=== PATIENT | male | born 1940 | race Caucasian/White ===

== ENCOUNTER 2017-01-25 07:19 | Emergency (ER) | payer BC ==
[~2017-01-25] VITALS: Ht 193 cm; Wt 88.5 kg
[~2017-01-25 07:19] MED LIST: ACC10 PO; ALBUAER2 INH; ASPCH81X PO; ATEN25TA PO; AVD5 PO; BNC40 PO; FLNIN/ NAE; FLUO20CA35 PO; IBUP-103 PO; IPRA0.037 NAE; LORA10TA51 PO; ONDA4TAB7 SL
[2017-01-25 07:23] VITALS: TEMP 36.8; Ht 193 cm; Wt 88.5 kg
--- NOTE | 2017-01-25 07:40 | EMERGENCY ROOM VISIT NOTE ---
History Report prepared by Terry: Juan Vazquez Under the Supervision of: Dr. Argelia Palacio M.D. First contact with patient: 07:32 Chief Complaint: BITE Stated Complaint: DOG BITES History of Present Illness The patient is a 76 year old male who presents to the Emergency Room with two acute dog bites that occurred last night. The patient's two dogs were fighting and the patient attempted to stop them leading up to the bites. He was bit on the bilateral thumbs. The associated pain is rated 2/10 in severity. The dogs' shots are up to date. The patient is unsure of his tetanus status. The patient is borderline diabetic but does not take anything for it. The patient does not have any known antibiotics allergies. Source of History: patient Onset: last night Position: finger(s) (bilateral thumbs) Symptom Intensity: 2/10 Quality: other (dog bites) Timing: other (acute) Review of Systems See HPI for pertinent positives & negatives. A total of 6 systems reviewed and were otherwise negative. 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 (6) Neurofibroma (7) Tonsillectomy Family History Cancer Diabetes mellitus Heart disease Hypertension Lung disease Social History Smoking Status: Never Smoker Alcohol Use: none Marital Status: Housing Status: lives with family Occupation Status: retired Current/Historical Medications Scheduled Amlodipine Besylate (Amlodipine Besylate), 1 TAB PO DAILY Amoxicillin & Pot Clavulanate (Augmentin 875-125 mg), 875 MG PO BID Aspirin (Aspirin Ec), 81 MG PO DAILY Atenolol (Atenolol), 1 TAB PO BID Dutasteride (Dutasteride), 1 TAB PO DAILY Fluoxetine HCl (Fluoxetine HCl), 1 TAB PO BID Olmesartan Medoxomil (Olmesartan Medoxomil), 1 TAB PO DAILY Quinapril Hcl (Accupril), 1 TAB PO BID Allergies Coded Allergies: Heparin (Unverified Allergy, Unknown, "PLATELETS GET KILLED", 01/25/17) Physical Exam Vital Signs Date Time Temp Pulse Resp B/P (MAP) Pulse Ox O2 Delivery O2 Flow Rate FiO2 01/25/17 09:44 73 16 147/77 97 01/25/17 08:23 67 16 160/79 96 Room Air 01/25/17 07:23 36.8 69 18 154/77 94 Room Air Physical Exam Vital signs reviewed. General: Well-appearing elderly male, in no significant distress. Musculoskeletal: Thumbs as described below, otherwise atraumatic, no peripheral edema. Neurologic: Patient awake alert and oriented x 3 Skin: Several superficial lacerations to the right thumb totaling about 1.5 cm on the dorsal aspect, small subcentimeter laceration to the palmar aspect, no lymphangitic streaking or cellulitis. Small ecchymotic area to the palmar surface of the left thumb, abrasion to the dorsal aspect. Medical Decision & Procedures ER Provider Diagnostic Interpretation: X-ray results as stated below per interpretation by me and the radiologist: RIGHT FINGER(S) MIN 2 VIEWS ROUTINE CLINICAL HISTORY: Right thumb dog bite. COMPARISON: None FINDINGS: Alignment of the right thumb is anatomic. There is no fracture or radiopaque foreign body. Mild arthritis is noted within articulations of the right thumb. IMPRESSION: No acute fracture or dislocation of the right thumb Electronically signed by: Casey Paul M.D. 01/25/2017 8:15 AM Dictated Date/Time: 01/25/2017 8:14 AM Medications Administered Medications (Trade) Dose Ordered Sig/Paloma Route Start Time Stop Time Status Last Admin Dose Admin Lidocaine HCl (Buffered Lidocaine 1% Inj) 20 ml NOW ONCE INFIL 01/25/17 07:45 01/25/17 07:47 DC 01/25/17 08:23 20 ML Amoxicillin/ Clavulanate Potassium (Augmentin Tab) 875 mg ONE ONCE PO 01/25/17 08:00 01/25/17 08:01 DC 01/25/17 08:21 875 MG Gelatin (Surgifoam Sponge 12-7MM (SMALL)) 1 ea NOW ONCE EXT 01/25/17 09:15 01/25/17 09:16 DC 01/25/17 09:19 1 EA ED Course 07: Past medical records reviewed. The patient was evaluated in room A11b. A complete history and physical examination was performed. His last tetanus shot was in April 2011. 0745: Lidocaine HCl 20 ml INFIL ordered. 0800: Augmentin 875 mg PO.. 15: Gelatin 1 ea EXT. 929: Reassessed the patient. Discussed the discharge instructions with him. He verbalized understanding and agreement. The patient is ready for discharge Medical Decision Blood Pressure Screening: Patient was found to have a mildly elevated blood pressure and was told to continue using his medications as prescribed. Medication Reconciliation: I attest that I have personally reviewed the patient' s current medication list. This pt was evaluated and appeared to be in no distress. XR was obtained and negative for dwayne involvement. Wounds were cleansed and approximated by Nikia Ramirez PA-C. Sterile dressing and thumb splint to right was applied. Pt TD was UTD. He was placed on Augmentin x 7 days. Wound care instructions were given. Pt was d/c to f/u with PCP, he will return to the ED for worsening of symptoms or any medical concerns. Impression Primary Impression: Dog bite Scribe Attestation The scribe's documentation has been prepared under my direction and personally reviewed by me in its entirety. I confirm that the note above accurately reflects all work, treatment, procedures, and medical decision making performed by me. Departure Information Dispostion Home / Self-Care Prescriptions Amoxicillin & Pot Clavulanate (Augmentin 875-125 mg) 1 Tab Tab 875 MG PO BID for 7 Days, TAB Prov: Argelia Palacio M.D. 01/25/17 Referrals No Doctor, Assigned (PCP) Forms HOME CARE DOCUMENTATION FORM, IMPORTANT VISIT INFORMATION Patient Instructions My [facility] Additional Instructions Diagnosis: Dog bite Augmentin 875 mg twice daily for 7 days. Your tetanus status is up-to-date as of 2010. Wash the wound gently with warm water and gentle soap once daily. Apply antibiotic ointment. Use the finger splint for several days to avoid reopening the wound. Follow-up with your physician within the next 2-3 days for reevaluation. Watch for signs of infection including redness, swelling and increased pain. Seek medical attention if any of the above symptoms present. Return to the ER for worsening of symptoms or any medical concerns. Problem Qualifiers Primary Impression: Dog bite Encounter type: initial encounter Qualified Codes: W54.0XXA - Bitten by dog , initial encounter
[2017-01-25] MEDS ORDERED: XYLOCAINE 1%/SOD BICARB 20 ML VIAL INFIL ONE (07:45)
[2017-01-25] MEDS ORDERED: NRV/10 PO (07:54)
[2017-01-25] MEDS ORDERED: TNR25 PO (07:54)
[2017-01-25] MEDS ORDERED: OLME40TA33 PO (07:54)
[2017-01-25] MEDS ORDERED: FLUO20CA36 PO (07:54)
[2017-01-25] MEDS ORDERED: DUTA1CAP3 PO (07:54)
[2017-01-25] MEDS ORDERED: ASPI81TA28 PO (07:54)
[2017-01-25] MEDS ORDERED: QUIN40TA18 PO (07:54)
[2017-01-25] MEDS ORDERED: AMOXICILLIN/CLAVULANATE TAB 875 MG TAB PO ONE (08:00)
--- NOTE | 2017-01-25 08:16 | DIAGNOSTIC IMAGING REPORT ---
RIGHT FINGER(S) MIN 2 VIEWS ROUTINE CLINICAL HISTORY: Right thumb dog bite. COMPARISON: None FINDINGS: Alignment of the right thumb is anatomic. There is no fracture or radiopaque foreign body. Mild arthritis is noted within articulations of the right thumb. IMPRESSION: No acute fracture or dislocation of the right thumb Electronically signed by: Casey Paul M.D. 01/25/2017 8:15 AM Dictated Date/Time: 01/25/2017 8:14 AM
--- NOTE | 2017-01-25 08:56 | EMERGENCY ROOM VISIT NOTE ---
ED Visit Note EMERGENCY DEPARTMENT PROCEDURE NOTE: I was asked by Dr. Palacio to evaluate and repair the right thumb wounds of this 76-year-old white male patient. Please refer to their dictation for the complete history, physical exam, and ED course. EMERGENCY DEPARTMENT COURSE: The wound was cleansed with saline, prepped with Betadine and draped with sterile towels. The wounds were anesthetized with 1% plain buffered lidocaine. The 1 cm laceration on the medial aspect of the right thumb was irrigated copiously using normal saline solution and direct pressure irrigation. Wound was examined thoroughly. There was no evidence for foreign body. The wound was repaired using 1, 5-0 nylon sutures. Patient also had a 0.5 cm superficial flap-like laceration on the dorsal aspect of the finger over the IP crease. This skin flap was excised. Bacitracin and a light dressing were applied. Patient tolerated the procedure well.
[2017-01-25] MEDS ORDERED: GELATIN SPONGE 12-7MM EXT ONE (09:15)
[2017-01-25] MEDS ORDERED: AMOX875T PO (09:32)
[2017-01-25 09:44] VITALS: BP 147/77; PULSE 73; O2SAT 97
== END 2017-01-25 09:40 | disposition home or self-care (01) ==
LOC: C.EDB 07:20 → C.EDA 09:40
DX: S61.051A Open bite of right thumb without damage to nail, initial encounter (principal); W54.0XXA Bitten by dog, initial encounter; Y92.019 Unspecified place in single-family (private) house as the place of occurrence of the external cause; I10 Essential (primary) hypertension; E11.9 Type 2 diabetes mellitus without complications; N40.0 Benign prostatic hyperplasia without lower urinary tract symptoms; Z80.9 Family history of malignant neoplasm, unspecified; Z83.3 Family history of diabetes mellitus; Z82.49 Family history of ischemic heart disease and other diseases of the circulatory system; Z83.6 Family history of other diseases of the respiratory system; Z79.82 Long term (current) use of aspirin; Z79.899 Other long term (current) drug therapy

== ENCOUNTER → 2017-03-08 | Outpatient (CLI) | payer BC ==
[~2017-03-08] MED LIST changes: -ACC10 PO; -ALBUAER2 INH; +AMOX875T PO; -ASPCH81X PO; +ASPI81TA28 PO; -ATEN25TA PO; -AVD5 PO; -BNC40 PO; +DUTA1CAP3 PO; -FLNIN/ NAE; -FLUO20CA35 PO; +FLUO20CA36 PO; -IBUP-103 PO; -IPRA0.037 NAE; -LORA10TA51 PO; +NRV/10 PO; +OLME40TA33 PO; -ONDA4TAB7 SL; +QUIN40TA18 PO; +TNR25 PO
[2017-03-08 11:11] LABS: BASO % 0.7 %; BASO ABS # 0.04 K/uL (0-0.2); COMPLETE YES; EOS % 2.7 %; HEMATOCRIT 47.1 % (42-52); IG% 0.3 %; LYMPH % 19.8 %; LYMPH ABS # 1.18 K/uL (1.2-3.4); MEAN CELL VOLUME 98.5 fL (80-100); MEAN CORPUSCULAR HEMOGLOBIN 32.6 pg (25-34); MEAN CORPUSCULAR HGB CONC 33.1 g/dl (32-36); MEAN PLATELET VOLUME 11.2 fL (7.4-10.4); MONO % 10.4 %; NEUT % 66.1 %; PLATELET COUNT 164 K/uL (130-400); RED BLOOD COUNT 4.78 M/uL (4.7-6.1); WHITE BLOOD COUNT 5.97 K/uL (4.8-10.8)
[2017-03-08 11:37] LABS: BLOOD UREA NITROGEN 16 mg/dl (7-18); BUN/CREATININE RATIO 20.8 (10-20); CALCIUM 9.3 mg/dl (8.5-10.1); CARBON DIOXIDE 31 mmol/L (21-32); CHLORIDE 104 mmol/L (98-107); CREATININE 0.77 mg/dl (0.60-1.40); GLUCOSE 118 mg/dl (70-99); POTASSIUM 4.2 mmol/L (3.5-5.1); SODIUM 142 mmol/L (136-145)
[2017-03-08 11:41] LABS: CHOLESTEROL 162 mg/dl (0-200); CHOLESTEROL/HDL RATIO 2.6; HDL CHOLESTEROL 62 mg/dl; LDL CHOLESTEROL CALCULATED 81 mg/dl; TRIGLYCERIDES 97 mg/dl (0-150); VERY LOW DENSITY LIPOPROT CALC 19 mg/dl
[2017-03-08 12:35] LABS: ESTIMATED AVERAGE GLUCOSE 117 mg/dl; HA1C FLAG Normal (Normal)
== END | disposition home or self-care (01) ==
LOC: C.LABBC 07:37
PROVIDERS: ATTEND Nurse Practitioner Adult Health
DX: Z00.00 Encounter for general adult medical examination without abnormal findings (principal); I10 Essential (primary) hypertension; R73.01 Impaired fasting glucose

== ENCOUNTER 2017-04-30 00:03 | Emergency (ER) | payer BC ==
[~2017-04-30] VITALS: Ht 193 cm; Wt 89.5 kg
[~2017-04-30 00:03] MED LIST changes: -AMOX875T PO
[2017-04-30 00:08] VITALS: TEMP 36.4; Ht 193 cm; Wt 89.5 kg
[2017-04-30] MEDS ORDERED: AMOXICILLIN/CLAVULANATE TAB 875 MG TAB PO ONE (00:45)
[2017-04-30] MEDS ORDERED: AMOX875T PO (00:46)
[2017-04-30 00:58] VITALS: BP 161/81; PULSE 72; O2SAT 100
--- NOTE | 2017-04-30 01:03 | EMERGENCY ROOM VISIT NOTE ---
History Report prepared by Terry: Nawaf Villa Under the Supervision of: Dr. Lian Ku D.O. First contact with patient: 00:12 Chief Complaint: BITE Stated Complaint: DOG BITE RIGHT ARM History of Present Illness The patient is a 77 year old male who presents to the Emergency Room for evaluation s/p dog bite occurring shortly prior to arrival. He states that he was bit on his right forearm. He states that his dog bit him after he startled him. The patient notes that his dog is relatively small. He has been bit by this dog in the past without significant complications. He believes his tetanus is up to date. The patient did not sustain any other injuries. Source of History: patient Onset: Shortly prior to arrival Position: arm (right forearm) Quality: other (dog bite) Timing: other (episode) Review of Systems See HPI for pertinent positives & negatives. A total of 6 systems reviewed and were otherwise negative. 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 (6) Neurofibroma (7) Tonsillectomy Family History Cancer Diabetes mellitus Heart disease Hypertension Lung disease Social History Smoking Status: Former Smoker Alcohol Use: none Housing Status: lives with family Occupation Status: retired Current/Historical Medications Scheduled Amlodipine Besylate (Amlodipine Besylate), 1 TAB PO DAILY Amoxicillin & Pot Clavulanate (Augmentin 875-125 mg), 875 MG PO BID Aspirin (Aspirin Ec), 81 MG PO DAILY Atenolol (Atenolol), 1 TAB PO BID Dutasteride (Dutasteride), 1 TAB PO DAILY Fluoxetine HCl (Fluoxetine HCl), 1 TAB PO BID Olmesartan Medoxomil (Olmesartan Medoxomil), 1 TAB PO DAILY Quinapril Hcl (Accupril), 1 TAB PO BID Allergies Coded Allergies: Heparin (Unverified Allergy, Unknown, "PLATELETS GET KILLED", 04/30/17) Physical Exam Vital Signs Date Time Temp Pulse Resp B/P (MAP) Pulse Ox O2 Delivery O2 Flow Rate FiO2 04/30/17 00:58 72 18 161/81 100 04/30/17 00:08 36.4 72 18 161/81 100 Room Air Physical Exam HEENT: Head - normocephalic and atraumatic Pupils are equal, round, and reactive to light. Extraocular eye muscles are intact, and sclera are anicteric. Nose - moist nasal mucosa without discharge. Mouth - moist buccal mucosa. Oropharynx is nonerythematous and there is no tonsillar exudate or edema noted. Neck: Supple; no JVD, nuchal rigidity, cervical lymphadenopathy. Heart: Regular rate and rhythm. There is a normal S1 and S2 with no murmurs, clicks, or gallops appreciated. Lungs: Clear to auscultation bilaterally with no wheezes, rales, or rhonchi. Abdomen: Soft, completely nontender, nondistended, with good bowel sounds. There are no palpable pulsatile masses or hepatosplenomegaly. There is no guarding, rigidity, or rebound noted. Right Upper Extremity: 2 cm laceration to the thenar eminence of the right hand. Two small, superficial puncture wounds to the dorsal right forearm. Small , superficial puncture wound to the dorsal wrist. Skin: warm and dry with good turgor and no rashes. Medical Decision & Procedures Medications Administered Medications (Trade) Dose Ordered Sig/Paloma Route Start Time Stop Time Status Last Admin Dose Admin Amoxicillin/ Clavulanate Potassium (Augmentin Tab) 875 mg ONE ONCE PO 04/30/17 00:45 04/30/17 00:46 DC 04/30/17 00:49 875 MG Procedure Location: thenar eminence of the right hand Total length: 2 cm Complexity: simple Verbal consent was obtained. At this time, the risks of the procedure are less than the risks of NOT performing the procedure. A time out was taken and the correct patient and site identified. The skin was prepped with betadine. Copious irrigation was performed using sterile water. The skin was re-prepped with betadine and a sterile field set. The wound was explored for foreign bodies and none found. Examination revealed no injury to deep structures such as tendons, bone, or significant blood vessels. Debridement was not performed. The wound edges were approximated using 1, 4-0 simple Ethilon suture. Hemostasis and excellent approximation was achieved. Antibacterial ointment and a sterile dressing applied. Detailed wound care instructions and signs and symptoms of infection reviewed with the the patient. No complications and the patient tolerated the procedure well. ED Course 0019: Past medical records reviewed. The patient was evaluated in room A3. A complete history and physical exam was performed. The the patient states that he is up-to-date on his tetanus and that the dogs are up-to-date on their rabies vaccine. 0025: I conducted the laceration repair. See the procedure note for details. I also performed a thorough washout to the wounds on the forearm and wrist. 0045: Ordered Augmentin Tab 875 mg PO. Upon reevaluation, the patient is resting comfortably. He verbalized agreement of the treatment plan. The patient was discharged home. Medical Decision This is a 77-year-old male patient who suffered dog bites to his right upper extremity. One of the wounds on the right hand required suture repair. Only one suture was placed to loosely approximate the wound edges. The patient was placed on antibiotics. The rest of the wounds were cleansed and dressed. He was instructed to watch for signs of infection. He is up to date on tetanus. Impression Primary Impression: Dog bite of right arm Scribe Attestation The scribe's documentation has been prepared under my direction and personally reviewed by me in its entirety. I confirm that the note above accurately reflects all work, treatment, procedures, and medical decision making performed by me. Departure Information Dispostion Home / Self-Care Prescriptions Amoxicillin & Pot Clavulanate (Augmentin 875-125 mg) 1 Tab Tab 875 MG PO BID, #14 TAB Prov: Lian Ku D.O. 04/30/17 Referrals No Doctor, Assigned (PCP) Forms HOME CARE DOCUMENTATION FORM, IMPORTANT VISIT INFORMATION Patient Instructions ED Bite Dog, My [facility]ravel Additional Instructions Rest with your right arm elevated. Watch the wounds for signs of infection. Keep the wounds clean with soap and water. Cover with antibiotic ointment and a sterile dressing. Augmentin - 1 tab. every 12 hours Use tylenol and motrin for pain Problem Qualifiers Primary Impression: Dog bite of right arm Encounter type: initial encounter Qualified Codes: S41.151A - Open bite of right upper arm, initial encounter; W54.0XXA - Bitten by dog, initial encounter
== END 2017-04-30 00:52 | disposition home or self-care (01) ==
LOC: C.EDB 00:05 → C.EDA 00:52
DX: S51.851A Open bite of right forearm, initial encounter (principal); W54.0XXA Bitten by dog, initial encounter; I10 Essential (primary) hypertension; E11.9 Type 2 diabetes mellitus without complications; Z90.49 Acquired absence of other specified parts of digestive tract; N40.0 Benign prostatic hyperplasia without lower urinary tract symptoms; Z80.9 Family history of malignant neoplasm, unspecified; Z83.3 Family history of diabetes mellitus; Z82.49 Family history of ischemic heart disease and other diseases of the circulatory system; Z87.891 Personal history of nicotine dependence; Z79.82 Long term (current) use of aspirin; Z79.899 Other long term (current) drug therapy

== ENCOUNTER → 2017-05-08 | Outpatient (CLI) | payer BC ==
[~2017-05-08] MED LIST changes: +AMOX875T PO
[2017-05-08 13:21] LABS: URINE APPEARANCE CLEAR (CLEAR); URINE BILIRUBIN NEG (NEG); URINE COLOR YELLOW; URINE NITRITE NEG (NEG); URINE SPECIFIC GRAVITY 1.014 (1.000-1.030); UROBILINOGEN NEG (NEG)
[2017-05-08 13:27] LABS: MANUAL MICROSCOPIC REQUIRED? NO; REVIEW REQ? NO
[2017-05-08 13:44] LABS: URINE TOTAL PROTEIN < 5.0 mg/dl (0-11.9)
[2017-05-08 13:50] LABS: BLOOD UREA NITROGEN 17 mg/dl (7-18); CREATININE 0.72 mg/dl (0.60-1.40); GLUCOSE 99 mg/dl (70-99)
[2017-05-08 13:51] LABS: CALCIUM 9.3 mg/dl (8.5-10.1); CARBON DIOXIDE 29 mmol/L (21-32); CHLORIDE 102 mmol/L (98-107); PHOSPHORUS 2.8 mg/dl (2.5-4.9); POTASSIUM 3.8 mmol/L (3.5-5.1); SODIUM 137 mmol/L (136-145)
== END | disposition home or self-care (01) ==
LOC: C.LAB1850 12:12
PROVIDERS: ATTEND Internal Medicine Nephrology
DX: I10 Essential (primary) hypertension (principal)

== ENCOUNTER → 2017-05-18 | Outpatient (CLI) | payer BC ==
[~2017-05-18] MED LIST changes: -AMOX875T PO
--- NOTE | 2017-05-18 11:02 | DIAGNOSTIC IMAGING REPORT ---
DOPPLER ULTRASOUND OF THE RENAL ARTERIES CLINICAL HISTORY: Poorly controlled hypertension. COMPARISON STUDY: Abdominal CT dated 09/11/2006. TECHNIQUE: Doppler sonography of the renal arteries was performed to assess renal artery stenosis. Images are reviewed in the transverse and longitudinal planes. FINDINGS: The kidneys history cortical atrophy and are without hydronephrosis. Right kidney measures 12.3 cm in length and the left kidney measures 12.0 cm in length. On the right, intrarenal arterial resistive indices measured 0.67. Intrarenal arterial waveforms are normal with brisk upstrokes. The right renal arterial waveform is normal, and velocities within the right renal artery measure up to 138 cm/sec. The right renal vein is patent. On the left, intrarenal arterial resistive indices measured 0.69. Intrarenal arterial waveforms are normal with brisk upstrokes. The left renal arterial waveform is normal, and velocities within the left renal artery measure up to 102 cm/sec. The left renal vein is patent. The abdominal aorta is patent. Velocities within the abdominal aorta measure up to 109 cm/s. IMPRESSION: 1. There is no sonographic evidence of renal artery stenosis. 2. The kidneys insert cortical atrophy and are without hydronephrosis. Electronically signed by: Arjun Amato M.D. 05/18/2017 11:01 AM Dictated Date/Time: 05/18/2017 10:59 AM
== END | disposition home or self-care (01) ==
LOC: C.ULTR 09:27
PROVIDERS: ATTEND Internal Medicine Nephrology
DX: I10 Essential (primary) hypertension (principal); N26.1 Atrophy of kidney (terminal)

== ENCOUNTER → 2017-05-22 | Outpatient (CLI) | payer BC ==
[2017-05-22 13:31] LABS: BLOOD UREA NITROGEN 30 mg/dl (7-18); BUN/CREATININE RATIO 30.9 (10-20); CALCIUM 9.6 mg/dl (8.5-10.1); CARBON DIOXIDE 31 mmol/L (21-32); CHLORIDE 98 mmol/L (98-107); CREATININE 0.97 mg/dl (0.60-1.40); GLUCOSE 132 mg/dl (70-99); MAGNESIUM 2.6 mg/dl (1.8-2.4); POTASSIUM 3.9 mmol/L (3.5-5.1); SODIUM 137 mmol/L (136-145)
[2017-05-22 13:32] LABS: PHOSPHORUS 2.9 mg/dl (2.5-4.9)
== END | disposition home or self-care (01) ==
LOC: C.LAB1850 11:14
PROVIDERS: ATTEND Internal Medicine Nephrology
DX: I10 Essential (primary) hypertension (principal)

== ENCOUNTER → 2017-06-01 | Outpatient (CLI) | payer BC ==
[2017-06-01 11:13] LABS: BLOOD UREA NITROGEN 19 mg/dl (7-18); BUN/CREATININE RATIO 19.4 (10-20); CALCIUM 9.1 mg/dl (8.5-10.1); CARBON DIOXIDE 32 mmol/L (21-32); CHLORIDE 101 mmol/L (98-107); GLUCOSE 127 mg/dl (70-99); POTASSIUM 3.9 mmol/L (3.5-5.1); SODIUM 139 mmol/L (136-145)
[2017-06-01 11:26] LABS: MAGNESIUM 2.4 mg/dl (1.8-2.4); PHOSPHORUS 2.7 mg/dl (2.5-4.9)
== END | disposition home or self-care (01) ==
LOC: C.LABBC 07:54
PROVIDERS: ATTEND Internal Medicine Nephrology
DX: R53.83 Other fatigue (principal); N40.0 Benign prostatic hyperplasia without lower urinary tract symptoms; I10 Essential (primary) hypertension

== ENCOUNTER → 2017-09-05 | Outpatient (CLI) | payer BC ==
--- NOTE | 2017-09-05 13:53 | DIAGNOSTIC IMAGING REPORT ---
L HAND MIN 3 VIEWS ROUTINE CLINICAL HISTORY: SUBCUTANEOUS NODULE nodule COMPARISON: None. DISCUSSION: Degenerative change first carpometacarpal joint. No well-defined bony exostosis. No evidence for fracture or dislocation. No abnormal soft tissue calcifications. There is no evidence for soft tissue swelling. IMPRESSION: Moderate degenerative change first carpometacarpal joint. Otherwise negative left hand. No acute bony abnormalities appreciated. The above report was generated using voice recognition software. It may contain grammatical, syntax or spelling errors. Electronically signed by: Olegario Pickering M.D. 09/05/2017 1:51 PM Dictated Date/Time: 09/05/2017 1:51 PM
== END | disposition home or self-care (01) ==
LOC: C.RAD 13:25
PROVIDERS: ATTEND Nurse Practitioner Adult Health
DX: R22.9 Localized swelling, mass and lump, unspecified (principal)

== ENCOUNTER → 2017-09-26 | Outpatient (CLI) | payer BC ==
--- NOTE | 2017-09-26 14:59 | DIAGNOSTIC IMAGING REPORT ---
CHEST 2 VIEWS ROUTINE HISTORY: R09.89 Abnormal lung sounds [id number] COMPARISON: Chest 11/25/2014. FINDINGS: No focal lung consolidations to suggest pneumonia. No evidence for pulmonary edema. No pleural effusions. No pneumothorax. The heart is normal in size. Prior cholecystectomy. IMPRESSION: No acute process. Electronically signed by: Braulio Gandhi M.D. 09/26/2017 2:58 PM Dictated Date/Time: 09/26/2017 2:56 PM
== END | disposition home or self-care (01) ==
LOC: C.RADBC 14:46
PROVIDERS: ATTEND Nurse Practitioner Adult Health
DX: R09.89 Other specified symptoms and signs involving the circulatory and respiratory systems (principal)

== ENCOUNTER → 2017-10-18 | Outpatient (CLI) | payer BC | END | disposition home or self-care (01) | LOC: C.LABSPEC 17:45 | PROVIDERS: ATTEND Nurse Practitioner Adult Health | DX: R39.9 Unspecified symptoms and signs involving the genitourinary system (principal) ==

== ENCOUNTER → 2017-11-21 | Outpatient (CLI) | payer BC ==
[2017-11-21 14:43] LABS: BASO % 0.7 %; BASO ABS # 0.05 K/uL (0-0.2); EOS % 3.7 %; EOS ABS # 0.28 K/uL (0-0.5); HEMATOCRIT 42.2 % (42-52); HEMOGLOBIN 14.2 g/dL (14.0-18.0); IG# 0.07 K/uL (0.00-0.02); LYMPH % 20.7 %; LYMPH ABS # 1.57 K/uL (1.2-3.4); MEAN CELL VOLUME 95.7 fL (80-100); MEAN CORPUSCULAR HEMOGLOBIN 32.2 pg (25-34); MEAN CORPUSCULAR HGB CONC 33.6 g/dl (32-36); MEAN PLATELET VOLUME 10.3 fL (7.4-10.4); MONO % 12.7 %; MONO ABS # 0.96 K/uL (0.11-0.59); NEUT % 61.3 %; NEUT ABS # 4.65 K/uL (1.4-6.5); PLATELET COUNT 161 K/uL (130-400); RED CELL DISTRIBUTION WIDTH CV 14.2 % (11.5-14.5); RED CELL DISTRIBUTION WIDTH SD 49.9 fL (36.4-46.3); WHITE BLOOD COUNT 7.58 K/uL (4.8-10.8)
[2017-11-21 14:58] LABS: ALBUMIN 3.2 gm/dl (3.4-5.0); ALT/SGPT 16 U/L (12-78); AST/SGOT 11 U/L (15-37); BLOOD UREA NITROGEN 18 mg/dl (7-18); CARBON DIOXIDE 28 mmol/L (21-32); CREATININE 0.81 mg/dl (0.60-1.40); GLUCOSE 169 mg/dl (70-99); POTASSIUM 3.9 mmol/L (3.5-5.1); SODIUM 136 mmol/L (136-145)
[2017-11-21 15:01] LABS: ALKALINE PHOSPHATASE 75 U/L (45-117); TOTAL PROTEIN 7.6 gm/dl (6.4-8.2)
== END | disposition home or self-care (01) ==
LOC: C.LAB 13:33
PROVIDERS: ATTEND Urology
DX: E53.8 Deficiency of other specified B group vitamins (principal); R53.83 Other fatigue; R33.9 Retention of urine, unspecified; R31.29 Other microscopic hematuria

== ENCOUNTER → 2017-11-30 | Outpatient (CLI) | payer BC ==
[~2017-11-30] MED LIST changes: +OPTIRAY 320 IV PRN
--- NOTE | 2017-11-30 11:50 | DIAGNOSTIC IMAGING REPORT ---
CT ABD/PELVIS COMBO CLINICAL HISTORY: R33.9 HEMATURIA COMPARISON STUDY: 09/11/2006 TECHNIQUE: Unenhanced images were obtained to the abdomen and pelvis. The patient was injected with 50 cc of Optiray 320. After 5 minute delay, the patient is rescanned in a dynamic helical fashion during the additional administration of 69 cc of Optiray 320. A dose lowering technique was utilized adhering to the principles of ALARA. CT DOSE: 1763.10 mGycm FINDINGS: Lower chest: There is basilar subpleural reticulation. No pleural effusions are visualized. Liver: The contrast-enhanced liver is normal in size, contour, and attenuation. There is no intrahepatic biliary ductal dilatation. The hepatic veins and portal veins are patent. Gallbladder: Surgically absent Spleen: Normal in size and attenuation. Pancreas: There are small pancreatic head cystic lesions measuring up to 9 mm in diameter. 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 There is no ductal dilatation Adrenal glands: Unremarkable. Kidneys: There is a 14 mm upper pole right renal cyst. There is a 4 mm upper pole right renal cyst. No solid renal masses are visualized. No renal, ureteral, or bladder calculi are visualized. No collecting system or ureteral lesions are visualized. Bowel: There are no transition zones to indicate bowel obstruction. No acute inflammatory changes are visualized. Peritoneum: There is no intraperitoneal free air or abdominal ascites. Vasculature: The abdominal aorta is normal in course and caliber. Adenopathy: There is mild central mesenteric infiltration. This finding was present in 2006. There are borderline enlarged mesenteric lymph nodes which also remain unchanged from the prior study. Pelvic viscera: The prostate measures 44 mm transversely. Skeletal structures: There are extensive postsurgical changes present within the spine. There are sacroiliac bolts present. There is a stable benign-appearing expansile lytic lesion within the right hemisacrum, and iliac bone. IMPRESSION: 1. No renal, ureteral, or bladder calculi identified 2. Right renal cysts 3. No solid renal masses identified 4. No uroepithelial lesions are visualized Electronically signed by: David Andino M.D. 11/30/2017 11:48 AM Dictated Date/Time: 11/30/2017 11:39 AM
== END | disposition home or self-care (01) ==
LOC: C.CTS 11:15
PROVIDERS: ATTEND Urology
DX: R31.29 Other microscopic hematuria (principal); R33.9 Retention of urine, unspecified